=== PATIENT | female | born 1995 | race Two or more races ===

== ENCOUNTER 2023-03-23 01:11 | Emergency (ER) | payer OTHER ==
[~2023-03-23] VITALS: Ht 157.5 cm; Wt 60.8 kg
[2023-03-23] MEDS ORDERED: KETO10TA2 PO (05:02)
== END 2023-03-23 05:16 ==
LOC: ER 01:11
DX: R07.9 Chest pain, unspecified (principal); M94.0 Chondrocostal junction syndrome [Tietze]; Z88.0 Allergy status to penicillin

== ENCOUNTER 2023-08-02 03:50 | Emergency (ER) | payer OTHER ==
[~2023-08-02] VITALS: Ht 157.5 cm; Wt 55.8 kg
[~2023-08-02 03:50] MED LIST: KETO10TA2 PO
[2023-08-02 04:58] LABS: MEAN CELL VOLUME 70.5 fL (80.00-100.00); MEAN CORPUSCULAR HGB CONC 31.4 g/dl (32.0-36.0); PLATELET COUNT 224 K/uL (150-450); RED BLOOD COUNT 3.33 M/uL (4.00-6.00); RED CELL DISTRIBUTION WIDTH 17.8 % (11.5-14.5)
[2023-08-02 04:59] LABS: HEMATOCRIT 23.5 % (36.0-45.00); MEAN CORPUSCULAR HEMOGLOBIN 22.2 pg (27.00-32.0)
[2023-08-02 05:00] LABS: HEMOGLOBIN 7.4 g/dL (12.0-15.00)
[2023-08-02 05:16] LABS: ALBUMIN 3.4 gm/dL (3.4-5.0); BILIRUBIN TOTAL 0.6 mg/dL (0.3-1.2); CALCIUM 8.8 mg/dL (8.5-10.1); CREATININE SERUM 0.69 mg/dL (0.55-1.02); GFR 102.84; GLOBULINA 2.8 G/DL (2.4-3.5); POTASSIUM 3.59 mEq/L (3.5-5.1); TOTAL PROTEIN 6.2 gm/dL (6.4-8.2)
[2023-08-02 06:13] LABS: HEMATOCRIT 27.3 % (36.0-45.00); MEAN CELL VOLUME 70.5 fL (80.00-100.00); MEAN CORPUSCULAR HGB CONC 31.4 g/dl (32.0-36.0); PLATELET COUNT 250 K/uL (150-450); RED BLOOD COUNT 3.87 M/uL (4.00-6.00); RED CELL DISTRIBUTION WIDTH 18.1 % (11.5-14.5)
[2023-08-02 06:14] LABS: MEAN CORPUSCULAR HEMOGLOBIN 21.9 pg (27.00-32.0)
[2023-08-02 06:15] LABS: HEMOGLOBIN 8.5 g/dL (12.0-15.00)
[2023-08-02 06:40] LABS: PH,URINE 6.5 (5.0-8.0); URINE APPEARANCE Clear; URINE BILIRRUBIN Negative (NEGATIVE); URINE BLOOD Negative; URINE COLOR Yellow; URINE GLUCOSE Negative (NEGATIVE); URINE LEUKOCYTE Moderate; URINE NITRATE Negative; URINE PROTEIN Negative (NEGATIVE); URINE UROBILINOGEN 0.2 E.U./dl
[2023-08-02 06:43] LABS: URINE BACTERIA 1484.2 uL (0.0-1933); URINE EPITHELIAL CELLS 97.5 uL (0.0-38.8)
[2023-08-02 08:05] LABS: URINE RBC 0.2 uL (0.0-20.8)
== END 2023-08-02 15:55 | disposition home or self-care (01) ==
LOC: ER 03:50
PROVIDERS: General Practice
DX: R10.13 Epigastric pain (principal); Z88.0 Allergy status to penicillin; R11.10 Vomiting, unspecified